=== PATIENT | female | born 1945 | race Two or more races ===

== ENCOUNTER 2019-03-23 04:05 | Emergency (ER) | payer SELFPAY ==
[~2019-03-23] VITALS: Ht 160 cm; Wt 61.2 kg
--- NOTE | 2019-03-23 04:25 | NUR ---
BIB DAUGHTER. [place] AMBULATORY. TO ER BED 5. AAO. VINCENTIAN SPEAKING DAUGTHER AT BEDSIDE TO TRANSLATE. NO RESP DISTRESS NOTED, BREATHING EVEN AND UNLABORED. BROUGHT IN W/ C/C OF NAUSEA AND DIZZYNESS WHICH STARTED 2AM. PT'S DAUGTHER REPORTS GIVING PT DIPHENIDOL AN HOUR AGO FOR VERTIGO WHICH WAS PRESCRIBED BACK IN [place]. PT WAS NOTED WITH ELEVATED BP @ 178/69. AT BEDSIDE FOR EVAL AWAITING ORDERS
--- NOTE | 2019-03-23 04:26 | NUR ---
IV LINE OBATINED ON RFA 20G. BLOOD DRAWN AND SENT TO LAB
[2019-03-23] MEDS ORDERED: MECLIZINE HCL 12.5 MG TABLET ONE (04:28)
[2019-03-23] MEDS ORDERED: hydrALAZINE HCL IV 20 MG VIAL ONE (04:28)
[2019-03-23] MEDS ORDERED: ONDANSETRON HCL/PF 4 MG/2 ML VIAL ONE (04:28)
[2019-03-23] MEDS ORDERED: ONDANSETRON HCL/PF 4 MG/2 ML VIAL IVP ONE (04:30)
[2019-03-23] MEDS ORDERED: hydrALAZINE HCL IV 20 MG VIAL IV ONE (04:30)
[2019-03-23] MEDS ORDERED: MECLIZINE HCL 12.5 MG TABLET PO ONE (04:30)
[2019-03-23 04:35] LABS: BASOPHILS # (AUTO) 0.1 /CMM (0.0-0.2); BASOPHILS % (AUTO) 0.9 % (0.0-2.0); EOSINOPHILS % (AUTO) 2.1 % (0.0-6.0); HEMATOCRIT 36 % (33-45); HEMOGLOBIN 12.4 g/dL (11.5-14.8); LYMPHOCYTES # (AUTO) 2.4 /CMM (0.8-4.8); LYMPHOCYTES % (AUTO) 22.5 % (20.0-44.0); MEAN CORPUSCULAR HGB CONC 34 g/dl (31.0-36.0); MEAN CORPUSCULAR VOLUME 90 fL (82-100); MONOCYTES # (AUTO) 0.6 /CMM (0.1-1.30); MONOCYTES % (AUTO) 5.9 % (2.0-12.0); NEUTROPHILS # (AUTO) 7.5 /CMM (1.8-8.9); NEUTROPHILS % (AUTO) 68.6 % (43.0-81.0); PLATELET COUNT (AUTO) 270 /CMM (150-450); RED BLOOD CELL COUNT(AUTO) 4.01 MIL/uL (4.0-5.2); WHITE BLOOD COUNT (AUTO) 10.9 K/uL (4.3-11.0)
--- NOTE | 2019-03-23 04:40 | NUR ---
pt left for CT scan
[2019-03-23 04:44] LABS: CALCIUM, SERUM 8.8 mg/dL (8.5-10.1); CARBON DIOXIDE 27 mmol/L (21-32); CHLORIDE 105 mmol/L (98-107); CREATININE 0.9 mg/dL (0.6-1.3); GLUCOSE 115 mg/dL (74-106); POTASSIUM 2.9 mmol/L (3.5-5.1); SODIUM SERUM 141 mmol/L (136-145); UREA NITROGEN, BLOOD 26 mg/dL (7-18)
[2019-03-23 04:53] LABS: ALANINE AMINOTRANSFERASE 25 U/L (12-78); ALBUMIN 3.6 g/dL (3.4-5.0); ALKALINE PHOSPHATASE 81 U/L (46-116); ASPARTATE AMINOTRANSFERASE 20 U/L (15-37); BILIRUBIN,TOTAL 0.4 mg/dL (0.2-1.0); TOTAL PROTEIN, SERUM 7.4 g/dL (6.4-8.2)
[2019-03-23] MEDS ORDERED: POTASSIUM CHLORIDE 20 MEQ TAB.PRT.SR PO ONE ×3 (05:00→05:03)
--- NOTE | 2019-03-23 05:00 | NUR ---
EKG AT BEDSIDE
[2019-03-23 05:48] VITALS: BP 125/55
--- NOTE | 2019-03-23 05:52 | NUR ---
Patient discharged to home in stable condition. Written and verbal after care instructions given. Patient verbalizes understanding of instruction.IV removed. Catheter intact and site benign. Pressure and 4x4 applied to site. No bleeding noted.Pt wheeled out to car on wheelchair.
== END 2019-03-23 05:57 | disposition home or self-care (01) ==
LOC: ER 04:05
DX: R42 Dizziness and giddiness (principal); I16.0 Hypertensive urgency; E87.6 Hypokalemia
CPT/HCPCS: 36415; 70450; 71045; 80048; 80076; 82962; 84484; 85025; 85730; 93005; 96374; 96375; 99284; J0360; J2405; J8597

== ENCOUNTER 2019-03-24 12:26 | Emergency (ER) | payer SELFPAY ==
[~2019-03-24] VITALS: Ht 157.5 cm; Wt 48.5 kg
[2019-03-24 12:36] VITALS: BP 141/57
--- NOTE | 2019-03-24 12:49 | NUR ---
Patient discharged to home in stable condition. Written and verbal after care instructions given. Patient verbalizes understanding of instruction.
== END 2019-03-24 12:49 | disposition home or self-care (01) ==
LOC: ER 12:29
DX: Z76.0 Encounter for issue of repeat prescription (principal); I10 Essential (primary) hypertension